=== PATIENT | female | born 1935 | race Caucasian/White ===

== ENCOUNTER 2019-03-23 14:16 | Outpatient (CLI) | payer MEDICARE | END 2019-03-23 23:59 | disposition home or self-care (01) | LOC: WOUND 14:16 | PROVIDERS: ATTEND Family Medicine | DX: T81.31XA Disruption of external operation (surgical) wound, not elsewhere classified, initial encounter (principal); I11.0 Hypertensive heart disease with heart failure; I50.9 Heart failure, unspecified; I48.0 Paroxysmal atrial fibrillation; E78.5 Hyperlipidemia, unspecified; J44.9 Chronic obstructive pulmonary disease, unspecified; Z87.891 Personal history of nicotine dependence; Z86.73 Personal history of transient ischemic attack (TIA), and cerebral infarction without residual deficits; Y83.8 Other surgical procedures as the cause of abnormal reaction of the patient, or of later complication, without mention of misadventure at the time of the procedure; Y92.89 Other specified places as the place of occurrence of the external cause | CPT/HCPCS: 17250; 99214 ==

== ENCOUNTER 2019-03-28 11:00 | Emergency (ER) | payer MEDICARE ==
[~2019-03-28] VITALS: Ht 162.6 cm; Wt 48.6 kg
--- NOTE | 2019-03-28 11:14 | NUR ---
PT TO ROOM 4 PER EMS. PT FELL IN DECEMBER 2018, AND DEVELOPED A LARGE HEMATOMA THAT REQUIRED SURGICAL DRAINING. WOUND SINCE BECAME INFECTED AND PATIENT HAS BEEN RECEIVING HOME HEALTH CARE EVERY -- FOR HEALING. PT WENT TO [facility] FOR FIRST VISIT ON 03/23/18 FOR CHEMICAL DEBRIDEMENT OF WOUND EDGES TO PROMOTE CLOSURE OF WOUND. PT WAS PUT IN COMPRESSION STOCKING AND TOLD TO WEAR FOR 48 HOURS. WHEN PATIENT REMOVED STOCKING THIS MORNING, SHE NOTICED INCREASED REDNESS AND ECCHYMOSIS SURROUNDING POSTERIOR CALF WITH PAIN ON PALPATION. C RN WAS UNABLE TO VISIT THIS MORNING, BUT MADE APPOINTMENT FOR THIS AFTERNOON. PT C/O SEVERE PAIN AND CALLED WOUND CLINIC. [facility] CALLED [facility]/ AND RN THERE CALLED 911, AND PT WAS BROUGHT IN FOR EVALUATION. PT ALSO C/O RIGHT EAR PAIN. PT INITIALLY UP TO BR WITH SLOW STEADY GAIT, SLIGHT LIMP FAVORING LEFT LEG. DAUGHTER IN LAW AT BEDSIDE. PT HAS HX OF AFIB, AND IS CURRENTLY TAKING COUMADIN. REDNESS TO RIGHT INNER EAR. WOUND ITSELF LOOKS WELL WITH BRIGHT RED HUANG PATCHES, AND WOUND EDGES ARE ROLLED FROM CHEMICAL DEBRIDEMENT. PATIENT RATES PAIN 2/10.
[2019-03-28 11:55] LABS: BASOPHILS # (AUTO) 0.03 x10^3/uL (0-0.1); BASOPHILS % (AUTO) 0 % (0-1); EOSINOPHILS # (AUTO) 0.13 x10^3/uL (0-0.4); EOSINOPHILS % (AUTO) 2 % (1-7); LYMPHOCYTES # (AUTO) 0.95 x10^3/uL (1-3.4); LYMPHOCYTES % (AUTO) 12 % (22-44); MD NO; MEAN CORPUSCULAR HEMOGLOBIN 29.6 pg (27.0-34.8); MEAN CORPUSCULAR HGB CONC 31.9 g/dL (32.4-35.8); MEAN CORPUSCULAR VOLUME 92.8 fL (80-100); MEAN PLATELET VOLUME 7.5 fL (7.4-10.4); MONOCYTES # (AUTO) 0.62 x10^3/uL (0.2-0.8); MONOCYTES % (AUTO) 8 % (2-9); NEUTROPHILS # (AUTO) 6.48 x10^3/uL (1.8-6.8); NEUTROPHILS % (AUTO) 79 % (42-75); PLATELET COUNT 326 x10^3/uL (130-400); RED BLOOD COUNT 4.44 x10^6/uL (3.82-5.3); RED CELL DISTRIBUTION WIDTH 16.6 % (9.6-15.2)
[2019-03-28 12:07] LABS: ALBUMIN 3.3 g/dL (3.4-5.0); ANION GAP 4 mmol/L (5-15); CALCIUM 9.4 mg/dL (8.5-10.1); CHLORIDE 109 mmol/L (98-107); CREATININE 0.76 mg/dL (0.55-1.02)
[2019-03-28 12:11] LABS: INTERNATIONAL NORMALIZED RATIO 2.28 (0.93-1.1); PROTHROMBIN TIME 24.4 Seconds (9.6-11.5)
[2019-03-28 12:35] LABS: HCT (SEDRATE) 41.2 % (34.6-47.8)
--- NOTE | 2019-03-28 12:54 | NUR ---
PRECEPTING RN: PT WAS UP TO RESTROOM. STEADY UPON AMBULATION TO AND FROM RESTROOM. PT AO X 4. SKIN PWD APART FROM WOUND ON LLE. PT AWARE THAT WE ARE WAITING FOR RECHECK BY [facility]. FAMILY AT BEDSIDE. PT DENIES NEEDS AT THIS TIME. CALL LIGHT WITHIN REACH. WILL CONT TO MONITOR PT.
--- NOTE | 2019-03-28 13:43 | NUR ---
PRECEPTING RN: PT AND FAMILY CONCERNED ABOUT WOUND DRESSING. RN DISCUSSED AT LENGTH WOUND CARE TREATMENT. PT AND FAMILY VERBALIZE UNDERSTANDING AND WILL ALSO F/U WITH [facility] TODAY.
--- NOTE | 2019-03-28 14:04 | NUR ---
DISCHARGE INSTRUCTIONS GIVEN TO FAMILY ALONG WITH ONE ANTIBIOTIC. PT AND FAMILY VERBALIZE UNDERSTANDING OF ALL CARE, MEDICATIONS AND FOLLOW UP.
[2019-03-28 14:05] VITALS: BP 106/72
== END 2019-03-28 14:14 | disposition home or self-care (01) ==
LOC: ED 12:29
DX: M79.662 Pain in left lower leg (principal); H66.001 Acute suppurative otitis media without spontaneous rupture of ear drum, right ear; Z79.01 Long term (current) use of anticoagulants; I48.91 Unspecified atrial fibrillation; Z86.73 Personal history of transient ischemic attack (TIA), and cerebral infarction without residual deficits
CPT/HCPCS: 36415; 80048; 82040; 85025; 85610; 85651; 93005; 99285

== ENCOUNTER → 2019-04-06 | Outpatient (CLI) | payer MEDICARE | END | disposition home or self-care (01) | LOC: WOUND 10:25 | PROVIDERS: ATTEND Family Medicine | DX: T81.31XD Disruption of external operation (surgical) wound, not elsewhere classified, subsequent encounter (principal); L97.822 Non-pressure chronic ulcer of other part of left lower leg with fat layer exposed; I11.0 Hypertensive heart disease with heart failure; I50.9 Heart failure, unspecified; I48.0 Paroxysmal atrial fibrillation; E78.5 Hyperlipidemia, unspecified; J44.9 Chronic obstructive pulmonary disease, unspecified; Z87.891 Personal history of nicotine dependence; Z86.73 Personal history of transient ischemic attack (TIA), and cerebral infarction without residual deficits; Y83.8 Other surgical procedures as the cause of abnormal reaction of the patient, or of later complication, without mention of misadventure at the time of the procedure | CPT/HCPCS: 97597 ==

== ENCOUNTER 2019-07-24 12:24 | Outpatient (CLI) | payer MEDICARE | END 2019-07-24 23:59 | disposition home or self-care (01) | LOC: CVU 12:24 | PROVIDERS: ATTEND Nurse Practitioner Family | DX: I83.93 Asymptomatic varicose veins of bilateral lower extremities (principal); I87.2 Venous insufficiency (chronic) (peripheral); L03.116 Cellulitis of left lower limb | CPT/HCPCS: 93970 ==